=== PATIENT | female | born 1960 | race Caucasian/White ===

== ENCOUNTER → 2018-05-30 | Outpatient (CLI) | payer BC ==
[2018-05-30 10:29] LABS: Hematocrit 41.3 % (36.0-46.0); Hemoglobin 13.2 g/dL (12.2-16.2); Mean Corpuscular Volume 92.9 fL (80.0-100.0); Red Blood Cells 4.45 10^6/uL (4.0-5.20)
[2018-05-30 10:31] LABS: Mean Corpuscular Hemoglobin 29.7 pg (28.0-32.0); Platelet Count (auto) 23 10^3/uL (140-450); Red Cell Distribution Width 17.5 % (11.8-14.3); White Blood Cell 2.1 10^3/uL (4.4-10.8)
[2018-05-30 10:50] LABS: INR 1.19 (0.9-1.15); Prothrombin Time 12.6 sec (9.27-12.13)
[2018-05-30 10:52] LABS: Band Neutrophils % (manual) 0; Basophils % (manual) 0 (0.0-2.0); Blast Cells 0; Metamyelocytes % 0; Myelocytes % 0; Promyelocytes % 0; Reactive Lymphocytes 0
--- NOTE | 2018-05-30 11:10 | NUR ---
PT IN ULTRASOUND FOR A PARACENTESIS. PLATELET COUNT IS LOW AT 23K. DR MENJIVAR SPOKE TO PT AND ABOUT THE RISKS OF BLEEDING. PT WISHES TO PROCEED WITH PARACENTESIS
--- NOTE | 2018-05-30 11:15 | NUR ---
VSS 136/91-61-16-99%. 45484: 150/91-62-16-99%. 1140: FINISHED WITH PROCEDURE. VSS. NO BLEEDING NOTED. 134/[id number]%.
[2018-05-30 20:50] LABS: Eosinophils % (manual) 4 (0-7); Lymphocytes % (manual) 30 (10.0-50.0); Monocytes % (manual) 5 (0-12)
== END | disposition home or self-care (01) ==
LOC: US 09:21
PROVIDERS: ATTEND Internal Medicine
DX: R18.8 Other ascites (principal)
CPT/HCPCS: 36415; 49083; 76700; 76942; 85007; 85027; 85610